=== PATIENT | male | born 1980 | race Two or more races ===

== ENCOUNTER 2019-02-05 04:47 | Emergency (ER) | payer SELFPAY ==
[~2019-02-05] VITALS: Ht 160 cm; Wt 77.1 kg
[2019-02-05 04:49] VITALS: Ht 160 cm; Wt 77.1 kg
[2019-02-05 05:42] LABS: BASOPHIL % 0.9 % (0-2); CALCIUM 8.7 mg/dL (8.5-10.1); CARBON DIOXIDE 31.1 mmol/L (21-32); CHLORIDE SERUM 108 mmol/L (98-107); CREATININE SERUM 0.8 mg/dL (0.7-1.3); GFR1 > 60 mL/min; GLUCOSE SERUM 100 mg/dL (74-106); PLATELET COUNT 217 x10^3mcL (130-400); POTASSIUM SERUM 3.9 mmol/L (3.5-5.1); RED CELL DISTRIBUTION WIDTH 13.6 % (11.5-14.5); SODIUM SERUM 147 mmol/L (136-145)
[2019-02-05 05:47] LABS: ALBUMIN 3.8 g/dL (3.4-5.0); ALKALINE PHOSPHATASE 105 U/L (46-116); ALT/SGPT 106 U/L (16-63); AST/SGOT 66 U/L (15-37); BILIRUBIN TOTAL 0.5 mg/dL (0.20-1.00)
[2019-02-05 05:57] LABS: TOTAL PROTEIN, SERUM 8.3 g/dL (6.4-8.2)
[2019-02-05 06:49] VITALS: BP 135/92
== END 2019-02-05 06:49 | disposition home or self-care (01) ==
LOC: ED 04:47
PROVIDERS: Emergency Medicine
DX: T67.3XXA Heat exhaustion, anhydrotic, initial encounter (principal); Y93.89 Activity, other specified; Y92.89 Other specified places as the place of occurrence of the external cause; Y99.8 Other external cause status
CPT/HCPCS: J7030